=== PATIENT | female | born 1955 ===

== ENCOUNTER 2018-02-20 11:43 | Outpatient (CLI) | payer OTHER ==
[~2018-02-20 11:43] MED LIST: ZEBUTAL CAPSULE1 CAP PO
== END 2018-02-20 11:54 | disposition home or self-care (01) ==
LOC: RAD 11:43
DX: M12.812 Other specific arthropathies, not elsewhere classified, left shoulder (principal); M12.811 Other specific arthropathies, not elsewhere classified, right shoulder; M19.012 Primary osteoarthritis, left shoulder; M19.011 Primary osteoarthritis, right shoulder

== ENCOUNTER 2019-08-20 11:16 | Outpatient (CLI) | payer OTHER | END 2019-08-20 14:49 | disposition home or self-care (01) | LOC: OFIC 805 11:16 | DX: R49.1 Aphonia (principal); J04.0 Acute laryngitis ==

== ENCOUNTER 2019-12-24 09:35 | Outpatient (CLI) | payer OTHER | END 2019-12-24 10:30 | disposition home or self-care (01) | LOC: OFIC 805 09:35 | PROVIDERS: ATTEND Otolaryngology | DX: H91.8X3 Other specified hearing loss, bilateral (principal) ==

== ENCOUNTER 2020-01-21 14:35 | Outpatient (CLI) | payer OTHER | END 2020-01-21 16:37 | disposition home or self-care (01) | LOC: OFIC 805 14:35 | PROVIDERS: ATTEND Otolaryngology | DX: H90.3 Sensorineural hearing loss, bilateral (principal); R42 Dizziness and giddiness ==

== ENCOUNTER 2020-02-20 09:21 | Outpatient (CLI) | payer OTHER | END 2020-02-20 10:25 | disposition home or self-care (01) | LOC: OFIC 805 09:21 | PROVIDERS: ATTEND Otolaryngology | DX: R42 Dizziness and giddiness (principal); H91.8X3 Other specified hearing loss, bilateral; R49.1 Aphonia; J04.0 Acute laryngitis ==

== ENCOUNTER → 2025-03-24 09:56 | Outpatient (CLI) | payer OTHER | END | disposition home or self-care (01) | LOC: SONOGRAMA 09:56 | PROVIDERS: ATTEND Pathology Anatomic Pathology | DX: C19 Malignant neoplasm of rectosigmoid junction (principal); C77.4 Secondary and unspecified malignant neoplasm of inguinal and lower limb lymph nodes ==